=== PATIENT | male | born 1970 | race Caucasian/White ===

== ENCOUNTER 2018-06-07 15:14 | Outpatient (CLI) | payer OTHER ==
[~2018-06-07 15:14] MED LIST: BIOCEL TABLET1 EACH; CLONAZEPAM0.5 MG/TAB; DESPEC-DM TABL1 EACH PO; DULERA 100 MCG/13 GM; EFFEXOR XR75 MG; KETO10TA2 PO; LEVAQUIN750 MG PO; LIPITOR80 MG; LOVAZA1 G; POM (MEDICAMENTO EN PHA) PO; PROVENTIL0.5 ML/2.5; Pulmicort 0.5 MG/2 ML AMPUL IH; SEPTRA DS TABLE1 TAB PO; SUSTIVA600 MG; SYMBICORT 80/10.2 GM; TRICOR145 MG; VALTREX1000 MG; ZITHROMAX500 MG PO
== END 2018-06-07 15:18 | disposition home or self-care (01) ==
LOC: RAD 15:14
DX: M51.9 Unspecified thoracic, thoracolumbar and lumbosacral intervertebral disc disorder (principal)